=== PATIENT | female | born 1970 | race Caucasian/White ===

== ENCOUNTER 2016-12-06 08:37 | Emergency (ER) | payer SELFPAY ==
--- NOTE | 2016-12-06 09:53 | DIAGNOSTIC IMAGING REPORT ---
PROCEDURE: CT HEAD WITHOUT CONTRAST INDICATION: TRAUMA/INJURY TECHNIQUE: Axial CT images were acquired through the head. Coronal and sagittal reformations were created. COMPARISON: None. FINDINGS: No intracranial hemorrhage or extraaxial fluid collections. Ventricles are normal in size, shape and position. There is no mass, mass effect or midline shift. The gillis-white matter differentiation is normal. There is no edema. The calvarium is intact. Mild hyperostosis frontalis interna. The paranasal sinuses and mastoid air cells are normally aerated. The extracranial soft tissues and orbits are normal. IMPRESSION: 1. No CT evidence of acute intracranial process. 2. Findings discussed with Dr. Nava at 09:[address] scans at this facility use dose modulation, iterative reconstruction, and/or weight-based dosing when appropriate to reduce radiation dose to as low as reasonably achievable.
--- NOTE | 2016-12-06 10:06 | ED NURSING NOTES ---
Clinical Report - Nurses [facility] [address] [place] [address] 12/06/2016 8:37 [id number] Triage time 08:40 Dec 06 2016. Chief Complaint: SEIZURE and injury to head (seizure at work lasting jayme 1-2 minutes, pt struck head on desk, no loss of bladder or oral trauma, hx of seizures- lamictal and keppra - utd on meds, last seizure 2 years ago, pt a/o x 4). Alert. No acute distress. SEPSIS SCREEN: Sepsis Screen: negative. Negative (no infection suspected/documented). ELSY COMA SCORE: Elsy Coma Scale: 15- eyes open spontaneously (4); best verbal response- oriented x 4 (5); best motor response- obeys commands (6). --08:46 Alexis Ordonez R.N. 08:40 12/06/16. BP: 143/84 taken on the right arm, while lying. HR: 94. RR: 15. O2 saturation: 97%. Temp: 98 F. Pain level now: 12/14. --08:46 Alexis Ordonez R.N. Weight: 72.5 kg stated. Height/Length: 67 inches Per Patient. BMI: 25.1. --08:44 Alexis Ordonez R.N. Medications CeleXA Oral. Keppra Oral. LaMICtal Oral. --08:45 Alexis Ordonez R.N. Allergies No Known Drug Allergy. --08:45 Alexis Ordonez R.N. Medication/allergy information source: the patient. --08:46 Alexis Ordonez R.N. History Arrived by EMS. Historian: patient (and ems). ( co pain to back of head, "not a headache, just tender to touch"). Treatment EMR TRAINER: See EMS report. Finger stick glucose performed (132). PAST MEDICAL HX: Seizures. Immunizations: up-to-date. The patient has had a hysterectomy. SOCIAL HX: Former smoker, end date 2006. Occasional alcohol use. No drug use. No infectious disease exposure. ABUSE ASSESSMENT: No report of abuse. SELF HARM ASSESSMENT: A self harm assessment was performed. The patient answered "no" to the question "Do you have thoughts of harming or killing yourself?". NUTRITIONAL RISK ASSESSMENT: The nutritional risk assessment revealed no deficiencies. FUNCTIONAL ASSESSMENT: Functional assessment: no impairments noted. LEARNING NEEDS ASSESSMENT: The learning needs assessment revealed no barriers. SKIN INTEGRITY ASSESSMENT: Skin integrity risk assessment completed. No skin integrity risk identified. --08:46 Alexis Ordonez R.N. PROBLEMS: Tremor. Seizure. --08:45 Alexis Ordonez R.N. ADDITIONAL SURGERIES: Hysterectomy. Tonsillectomy. --08:45 Alexis Ordonez R.N. Interventions ID band on patient. To treatment room. --08:46 Alexis Ordonez R.N. PHYSICAL ASSESSMENT To room via stretcher. Patient gowned. GENERAL / NEURO / PSYCH: Alert. Oriented X 4. Appears in no acute distress. Patient appears well-nourished. HEENT: Pupils equal, round and reactive to light. Mucous membranes are pink. RESPIRATORY: Respirations not labored. CVS: Capillary refill less than 2 seconds. SKIN: Skin intact. Skin is warm and dry. Normal skin turgor. --08:47 Alexis Ordonez R.N. NURSING PROGRESS NOTES Pulse oximeter and NIBP monitor placed on patient; monitor alarms on. Patient gowned. Reassurance given. Seizure precautions maintained: side rails up x2 and padded, suction, O2 and family at bedside, patient in view of nurse's station and call dan in reach. Patient identifiers checked. Call light placed in reach. Side rails up x 2. Safety measures: (seizure pads in place). Bed placed in lowest position. Brakes of bed on. Patient ready for evaluation- chart flagged. Patient waiting for evaluation. --08:47 Alxeis Ordonez R.N. 09:03 12/06/2016 Site #1 started prior to arrival by EMS via IV in the right hand with an 18g angiocath (placed by ems charter boat captain). --09:03 Alexis Ordonez R.N. Patient waiting for evaluation. --09:04 Alexis Ordonez R.N. Patient transported to CT by stretcher with tech. --09:30 Alexis Ordonez R.N. ( call placed to Kathleen Espinoza to clarify dosage of lamictal, pt takes 300mg twice daily, notified). --09:40 Alexis Ordonez R.N. 09:41 12/06/2016 Keppra (LevETIRAcetam) PO 500 mg given. Allergies verified and confirmed 5 rights. --09:41 Alexis Ordonez R.N. ( rx lamictal order faxed to pharmacy). --09:42 Alexis Ordonez R.N. Patient waiting for CT results. --09:43 Alexis Ordonez R.N. 09:49 12/06/2016 LamoTRIgine PO Tablets 300 mg given. Allergies verified and confirmed 5 rights. --09:49 Alexis Ordonez R.N. 09:00 12/06/16. BP: 121/76. HR: 95. RR: 16. O2 saturation: 95% on room air. --10:30 Delvin Shannon R.N. DISPOSITION / DISCHARGE Departure time: 1023. Condition at departure: unchanged and stable. No learning barriers present. Discharge instructions provided and reviewed with the patient. Reviewed medication(s). Reviewed referrals. Patient verbalized understanding. Written instructions provided in Irish. The patient was discharged by the physician. She was discharged home and accompanied by family. She left the Emergency Department ambulatory and via private vehicle. Family member driving. --10:30 Delvin Shannon R.N. 10:00 12/06/16. BP: 124/94. HR: 92. RR: 16. O2 saturation: 95% on room air. Temp: 98 F (oral). Pain level now: 10. --10:30 Delvin Shannon R.N. Locked/Released at 12/06/2016 11:24 by Alexis Ordonez R.N.
--- NOTE | 2016-12-06 10:06 | ED CLINICAL REPORT ---
Clinical Report - Physicians/Mid Levels [facility] [address] [place] [address] 12/06/2016 8:37 Patient: JOHANA SIMMS Time Seen: 09. Arrived- By ambulance. Historian- patient. HISTORY OF PRESENT ILLNESS Chief Complaint: SINGLE SEIZURE. 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 This occurred just prior to arrival and today. Is no longer seizing. She has recovered. Not post-ictal in the emergency department. Seizure was witnessed. Had a single isolated seizure. Seizure activity lasted minutes (1 - 2). Location of injuries- (occipital hematoma). She lost consciousness and was incontinent. Generalized motor activity observed. Not obtunded post-ictally. No confusion post-ictally, speech difficulty post-ictally, weakness post-ictally or numbness post-ictally. reports no other pain or injury to the neck, back, chest, abdomen, pelvis, or other extremities. states that she did not take her seizure meds last night. reports being on 600 mg of lamictal daily and 500 keppra BID. Similar symptoms previously: Recent medical care: Not recently seen/assessed. REVIEW OF SYSTEMS No chest pain, difficulty breathing or abdominal pain. All systems otherwise negative, except as recorded above. PAST HISTORY See nurses notes. Medications: CeleXA Oral. Keppra Oral. LaMICtal Oral. Allergies: No Known Drug Allergy. SOCIAL HISTORY Never smoker. No alcohol use or drug use. No recent travel. Is a local resident. ADDITIONAL NOTES The nursing notes have been reviewed. PHYSICAL EXAM Vital Signs: 12/06/2016 08:40 BP: 143/84. HR: 94. RR: 15. O2 saturation: 97%. Temp: 98 F. Pain level now: 6/10. Oxygen saturation normal. Appearance: Alert. No acute distress. Not post-ictal. Not actively seizing. Eyes: Pupils equal, round and reactive to light. No nystagmus. Extraocular movements normal. ENT: Normal ENT inspection. TM's normal. Moist mucous membranes. Pharynx normal. (no obvious trauma to the tongue). Neck: Normal inspection. Neck supple. No meningeal signs. CVS: Normal heart rate and rhythm. Heart sounds normal. Pulses normal. Respiratory: No respiratory distress. Breath sounds normal. Abdomen: Soft and nontender. No organomegaly. Back: Normal inspection. Skin: Skin warm and dry. Normal skin color. No rash. Normal skin turgor. Extremities: Extremities exhibit normal ROM. No lower extremity edema. Neuro: Alert. Oriented X 3. Mood/affect normal. Speech normal. Cranial nerves normal (as tested). No cerebellar findings. No motor deficit. No sensory deficit. Reflexes normal. LABS, X-RAYS, AND EKG CT Head: (PROCEDURE: CT HEAD WITHOUT CONTRAST INDICATION: TRAUMA/INJURY TECHNIQUE: Axial CT images were acquired through the head. Coronal and sagittal reformations were created. COMPARISON: None. FINDINGS: No intracranial hemorrhage or extraaxial fluid collections. Ventricles are normal in size, shape and position. There is no mass, mass effect or midline shift. The gillis-white matter differentiation is normal. There is no edema. The calvarium is intact. Mild hyperostosis frontalis interna. The paranasal sinuses and mastoid air cells are normally aerated. The extracranial soft tissues and orbits are normal. IMPRESSION: 1. No CT evidence of acute intracranial process.). The study was independently viewed by me and interpreted by the radiologist. The study was discussed with the radiologist (via phone and pacs). PROGRESS AND PROCEDURES Course of Care: the patient is a pleasant 46-year-old female with past medical history significant for seizures on m last night presented for a vaginal seizure. Patient had a generalized seizure based on examination and history. Patient does not need further workup other than Accu-Chek and imaging of the head because of the reported fall. No other abnormalities noted on patient's workup and evaluation. Patient is appropriate and in good spirits. Patient is smiling and in no acute distress. No fever. Patient is agreeable to the treatment plan. The patient's workup is unremarkable. CT scan of the head does not show any signs of acute intracranial bleeding. Accu-Chek from EMS notes that the patient's blood glucose was n negative workup here in the emergency department patient is a stable outpatient candidate. First dose of her seizure medications were provided here in the emergency department. Patient stated that she was on 600 mg of Lamictal once a day however after rechecking these doses found the patient is on 300 mg of Lamictal twice a day. patient encouraged to continue taking her seizure medications as prescribed and follow up with her neurologist. I discussed with the patient workup here in the emergency department including diagnosis, home care, follow-up, and return precautions. All questions have been answered. The patient and daughter expressed understanding of these instructions and was agreeable to them. Disposition: Discharged. Condition: good. CLINICAL IMPRESSION 12/06/2016 08:40 BP: 143/84. HR: 94. RR: 15. O2 saturation: 97%. Temp: 98 F. Pain level now: 12/14. Generalized seizure. History of idiopathic etiology epilepsy (break through). No status epilepticus. Hypertensive. Oxygen saturation normal. Minor closed head injury. Unknown whether a loss of consciousness occurred. INSTRUCTIONS (Continue to take your medications as directed.). Warnings: GENERAL WARNINGS: Return or contact your physician immediately if your condition worsens or changes unexpectedly, if not improving as expected, or if other problems arise. Specifically return if pain, vomiting, bleeding, breathing difficulty or fever. Your Current Medications: CONTINUE TAKING THE FOLLOWING MEDICATIONS: CeleXA Oral. Keppra Oral. LaMICtal Oral. OTC Medications: Acetaminophen (available over the counter): take according to label instructions. Motrin (available over the counter): take according to label instructions. Follow-up: Return to the emergency department as needed. Follow up with your doctor in three days. Reason for referral: recheck today's concerns. Summary of care provided to patient via paper. Screening today revealed the patient's blood pressure to be in the normal range. The patient should follow up with a primary care provider for blood pressure management. Understanding of the discharge instructions verbalized by patient. (Electronically signed by Valente Nava Dr. 12/07/2016 12:31)
--- NOTE | 2016-12-06 10:06 | ED ORDER SUMMARY ---
..... Patient: JOHANA SIMMS OrderSheet [facility] VisitID: [id number] [place] [address] 46y, F Registration Date/Time: 12/06/2016 ORDER SHEET Weight: 72.5 kg (stated) Allergies: No Known Drug Allergy GENERAL ORDERS: CT Head wo Cont Urgent (09:12/06/2016 Donavon Maciel) (Ack 9:21 Deni) (9:25 Jackie R.N.) Ice (09:12/06/2016 Donavon Maciel) (9:23 Teressa) MEDICATION ORDERS: - (lamictal 600 mg PO once now) (09:12/06/2016 Donavon Maciel) (Cancelled: Duplicate Order9:40 Donavon Maciel) Keppra PO 500 mg (Do not crush or chew, NOW) (09:12/06/2016 Donavon Maciel) (9:41 KPacaridad-Winnie R.N.) - (lamictal 300 mg PO once now) (09:40 12/06/2016 Donavon Maciel) (Ack 9:43 KPacaridad-Winnie R.N.) (9:49 KPaMark R.N.) IV FLUIDS: ORDER SHEET NOTES: [Electronically signed by Alexis Ordonez R.N. (11:24 12/06/2016)] [Electronically signed by Valente Nava Dr. (12:31 12/07/2016)] [Electronically locked/signed by Alexis Ordonez R.N. (11:12/06/2016)]
--- NOTE | 2016-12-06 10:06 | ED NURSING NOTES ---
Clinical Report - Nurses [facility] [address] [place] [address] 12/06/2016 8:37 [id number] Triage time 08:40 Dec 06 2016. Chief Complaint: SEIZURE and injury to head (seizure at work lasting jayme 1-2 minutes, pt struck head on desk, no loss of bladder or oral trauma, hx of seizures- lamictal and keppra - utd on meds, last seizure 2 years ago, pt a/o x 4). Alert. No acute distress. SEPSIS SCREEN: Sepsis Screen: negative. Negative (no infection suspected/documented). ELSY COMA SCORE: Elsy Coma Scale: 15- eyes open spontaneously (4); best verbal response- oriented x 4 (5); best motor response- obeys commands (6). --08:46 Alexis Ordonez R.N. 08:40 12/06/16. BP: 143/84 taken on the right arm, while lying. HR: 94. RR: 15. O2 saturation: 97%. Temp: 98 F. Pain level now: 12/14. --08:46 Alexis Ordonez R.N. Weight: 72.5 kg stated. Height/Length: 67 inches Per Patient. BMI: 25.1. --08:44 Alexis Ordonez R.N. Medications CeleXA Oral. Keppra Oral. LaMICtal Oral. --08:45 Alexis Ordonez R.N. Allergies No Known Drug Allergy. --08:45 Alexis Ordonez R.N. Medication/allergy information source: the patient. --08:46 Alexis Ordonez R.N. History Arrived by EMS. Historian: patient (and ems). ( co pain to back of head, "not a headache, just tender to touch"). Treatment QUALITY ASSURANCE DIRECTOR: See EMS report. Finger stick glucose performed (132). PAST MEDICAL HX: Seizures. Immunizations: up-to-date. The patient has had a hysterectomy. SOCIAL HX: Former smoker, end date 2006. Occasional alcohol use. No drug use. No infectious disease exposure. ABUSE ASSESSMENT: No report of abuse. SELF HARM ASSESSMENT: A self harm assessment was performed. The patient answered "no" to the question "Do you have thoughts of harming or killing yourself?". NUTRITIONAL RISK ASSESSMENT: The nutritional risk assessment revealed no deficiencies. FUNCTIONAL ASSESSMENT: Functional assessment: no impairments noted. LEARNING NEEDS ASSESSMENT: The learning needs assessment revealed no barriers. SKIN INTEGRITY ASSESSMENT: Skin integrity risk assessment completed. No skin integrity risk identified. --08:46 Alexis Ordonez R.N. PROBLEMS: Tremor. Seizure. --08:45 Alexis Ordonez R.N. ADDITIONAL SURGERIES: Hysterectomy. Tonsillectomy. --08:45 Alexis Ordonez R.N. Interventions ID band on patient. To treatment room. --08:46 Alexis Ordonez R.N. PHYSICAL ASSESSMENT To room via stretcher. Patient gowned. GENERAL / NEURO / PSYCH: Alert. Oriented X 4. Appears in no acute distress. Patient appears well-nourished. HEENT: Pupils equal, round and reactive to light. Mucous membranes are pink. RESPIRATORY: Respirations not labored. CVS: Capillary refill less than 2 seconds. SKIN: Skin intact. Skin is warm and dry. Normal skin turgor. --08:47 Alexis Ordonez R.N. NURSING PROGRESS NOTES Pulse oximeter and NIBP monitor placed on patient; monitor alarms on. Patient gowned. Reassurance given. Seizure precautions maintained: side rails up x2 and padded, suction, O2 and family at bedside, patient in view of nurse's station and call dan in reach. Patient identifiers checked. Call light placed in reach. Side rails up x 2. Safety measures: (seizure pads in place). Bed placed in lowest position. Brakes of bed on. Patient ready for evaluation- chart flagged. Patient waiting for evaluation. --08:47 Alexis Ordonez R.N. 09:03 12/06/2016 Site #1 started prior to arrival by EMS via IV in the right hand with an 18g angiocath (placed by ems ferry boat captain). --09:03 Alexis Ordonez R.N. Patient waiting for evaluation. --09:04 Alexis Ordonez R.N. Patient transported to CT by stretcher with tech. --09:30 Alexis Ordonez R.N. ( call placed to Kathleen Espinoza to clarify dosage of lamictal, pt takes 300mg twice daily, notified). --09:40 Alexis Ordonez R.N. 09:41 12/06/2016 Keppra (LevETIRAcetam) PO 500 mg given. Allergies verified and confirmed 5 rights. --09:41 Alexis Ordonez R.N. ( rx lamictal order faxed to pharmacy). --09:42 Alexis Ordonez R.N. Patient waiting for CT results. --09:43 Alexis Ordonez R.N. 09:49 12/06/2016 LamoTRIgine PO Tablets 300 mg given. Allergies verified and confirmed 5 rights. --09:49 Alexis Ordonez R.N. 09:00 12/06/16. BP: 121/76. HR: 95. RR: 16. O2 saturation: 95% on room air. --10:30 Delvin Shannon R.N. DISPOSITION / DISCHARGE Departure time: 1023. Condition at departure: unchanged and stable. No learning barriers present. Discharge instructions provided and reviewed with the patient. Reviewed medication(s). Reviewed referrals. Patient verbalized understanding. Written instructions provided in Serbian. The patient was discharged by the physician. She was discharged home and accompanied by family. She left the Emergency Department ambulatory and via private vehicle. Family member driving. --10:30 Delvin Shannon R.N. 10:00 12/06/16. BP: 124/94. HR: 92. RR: 16. O2 saturation: 95% on room air. Temp: 98 F (oral). Pain level now: 10. --10:30 Delvin Shannon R.N. Locked/Released at 12/06/2016 11:24 by Alexis Orodnez R.N.
--- NOTE | 2016-12-06 10:06 | ED ORDER SUMMARY ---
..... Patient: JOHANA SIMMS OrderSheet [facility] VisitID: [id number] [place] [address] 46y, F Registration Date/Time: 12/06/2016 ORDER SHEET Weight: 72.5 kg (stated) Allergies: No Known Drug Allergy GENERAL ORDERS: CT Head wo Cont Urgent (09:12/06/2016 Donavon Maciel) (Ack 9:21 Deni) (9:25 Jackie R.N.) Ice (09:12/06/2016 Donavon Maciel) (9:23 Teressa) MEDICATION ORDERS: - (lamictal 600 mg PO once now) (09:12/06/2016 Donavno Maciel) (Cancelled: Duplicate Order9:40 Donavon Maciel) Keppra PO 500 mg (Do not crush or chew, NOW) (09:12/06/2016 Donavon Maciel) (9:41 KPacaridad-Winnie R.N.) - (lamictal 300 mg PO once now) (09:40 12/06/2016 Donavon Maciel) (Ack 9:43 KPacaridad-Winnie R.N.) (9:49 KPaMark R.N.) IV FLUIDS: ORDER SHEET NOTES: [Electronically signed by Alexis Ordonez R.N. (11:24 12/06/2016)] [Electronically signed by Valente Nava Dr. (12:31 12/07/2016)] [Electronically locked/signed by Alexis Ordonez R.N. (11:12/06/2016)]
--- NOTE | 2016-12-07 12:31 | ED MAR SUMMARY ---
..... Medication Administration [facility] [address] [place] [address] Patient: JOHANA SIMMS Visit ID: [id number] 46y, F Weight: 72.5 kg Height/Length: 67 in BMI: 25.1 ALLERGIES: No Known Drug Allergy Given 09:41 12/06/2016 Alexis Ordonez, RKatelynnNKatelynn Medication Administered: KEPPRA [PO] (LEVETIRACETAM), Dose: 500 mg PO. Medication Ordered: Keppra PO 500 mg (Do not crush or chew, NOW). Given 09:49 12/06/2016 Alexis Ordonez, RKatelynnN. Medication Administered: LAMOTRIGINE [PO], Dose: 300 mg Tablets PO. Medication Ordered: - (lamictal 300 mg PO once now).
--- NOTE | 2016-12-07 12:31 | ED MED RECONCILIATION SUMMARY ---
Patient: JOHANA SIMMS Medication Reconciliation Report [facility] VisitID: [id number] [address] [place] [address] 46y, F Registration Date/Time: 12/06/2016 Weight: 72.5 kg Height/Length: 67 in. BMI: 25.1 ALLERGIES: No Known Drug Allergy The patient's Home Medications are listed below: CONTINUE TAKING THE FOLLOWING MEDICATIONS: CeleXA Oral Keppra Oral LaMICtal Oral The source(s) of the original Home Medication information: patient The following Medications were given to the patient in the Emergency Department: Keppra [PO] PO 500 mg, administered: 12/06/2016 9:41:00 AM LamoTRIgine [PO] PO 300 mg, administered: 12/06/2016 9:49:00 AM The following Medications were prescribed to the patient: Acetaminophen (available over the counter): take according to label instructions. -- Valente Nava Dr. Motrin (available over the counter): take according to label instructions. -- Valente Nava Dr.
--- NOTE | 2016-12-07 12:31 | ED DISCHARGE INSTRUCTIONS ---
Patient: JOHANA SIMMS General Instructions [facility] VisitID: [id number] [place] [address] 46y, F Registration Date/Time: 12/06/2016 12/06/2016 08:40 BP: 143/84. HR: 94. RR: 15. O2 saturation: 97%. Temp: 98 F. Pain level now: 6/10. Generalized seizure. History of idiopathic etiology epilepsy (break through). No status epilepticus. Hypertensive. Oxygen saturation normal. Minor closed head injury. Unknown whether a loss of consciousness occurred. INSTRUCTIONS (Continue to take your medications as directed.). Warnings: GENERAL WARNINGS: Return or contact your physician immediately if your condition worsens or changes unexpectedly, if not improving as expected, or if other problems arise. Specifically return if pain, vomiting, bleeding, breathing difficulty or fever. Your Current Medications: CONTINUE TAKING THE FOLLOWING MEDICATIONS: CeleXA Oral. Keppra Oral. LaMICtal Oral. OTC Medications: Acetaminophen (available over the counter): take according to label instructions. Motrin (available over the counter): take according to label instructions. Follow-up: Return to the emergency department as needed. Follow up with your doctor in three days. Reason for referral: recheck today's concerns. Summary of care provided to patient via paper. Screening today revealed the patient's blood pressure to be in the normal range. The patient should follow up with a primary care provider for blood pressure management. Understanding of the discharge instructions verbalized by patient. ADDITIONAL INFORMATION Recurrent Seizure [Adult] You have had another seizure today. A common cause of recurrent seizure is missing doses of the seizure medicine. However, sometimes seizures are difficult to control even when you take the medicine correctly. If this is the case for you, it may be necessary to increase your dosage or add or change to another medicine. Home Care: For This Seizure: Since seizures are not predictable, you must avoid doing anything that might cause danger to you or others if you have another one. Therefore, until the seizures are under good control, take these precautions: Do not drive a car, bicycle or motorcycle Do not operate dangerous equipment such as power tools Use a shower instead of a bath Do not swim or climb (ladders, trees, roofs) Tell your close friends and relatives about your seizure and teach them what to do for you if it happens again. If you were prescribed a medicine to prevent seizures, take it exactly as directed. It does not work when taken on an "as needed" basis. Missing doses will increase the risk of having another seizure. If you miss a dose, take the missed dose as soon as you remember. If it is almost time for your next dose, skip the missed dose. Restart the medicine at your next scheduled time. Do not take extra medicine to make up the missed dose. Wear a "Medic-Alert" bracelet to advise emergency personnel of your condition. For Future Seizures: If You Are Alone: If you feel a seizure coming on, the best thing to do is to lie down on a bed or on the floor. Lie on your side, not on your back. This will prevent falling, promote drainage of oral secretions out of the mouth and prevent choking. Be sure that you are clear of any objects that might injure you during the seizure. Call for help if there is time. If Someone Is With You: If someone is with you before the seizure, they should help you get in a safe position and call for help. They should not try to force anything in your mouth once the seizure has begun. Doing this may cause injury. Follow Up with your doctor, or as directed by our staff. NOTE: For the safety of yourself and others on the road, certain states require that the treating doctor inform the Public Health Department of any adult who is treated for a seizure and is at risk of further seizures. In this case, the Department of Motor Vehicles (DMV) will be notified and a restriction will be placed on your drivers license until a doctor gives you medical clearance to drive again. Contact your treating doctor to find out if your state requires the reporting of patients with a seizures condition. Get Prompt Medical Attention if any of the following occur: Seizures occurring more often or becoming longer than usual Seizure lasting over 5 minutes No wake-up between seizures Remaining confused for more than 30 minutes after a seizure Injury during a seizure Fever over 100.4F (38.0C) Unusual irritability, drowsiness or confusion Stiff or painful neck Worsening headache Concussion (No Wake-Up) A concussion happens when you hit your head with enough force to shake up the brain. This may cause you to lose consciousness be "knocked out" - but not always. Depending on how hard you hit your head, it will take from a few hours up to a few days to get better. Sometimes symptoms may last a few months or longer. This is called post-concussion syndrome. At first, you may have a headache, nausea, vomiting, or dizziness. You may also have problems concentrating or remembering things. This is normal. Symptoms should get better as the hours and days go by. Symptoms that get worse could be a sign of a more serious injury. This might be a bruise or bleeding in the brain. Thats why its important to watch for the warning signs listed below. Home care Follow these tips to help care for yourself at home: During the next day (24 hours) someone must stay with you to check for the signs below. If your face or scalp swells, apply an ice pack for 20 minutes every 1 to 2 hours. Do this until the swelling starts to go down. You can make an ice pack by putting ice cubes in a plastic bag and wrapping the bag in a towel. for 20 minutes every 1-2 hours until the swelling starts to go down. You may use acetaminophen to control pain, unless another pain medicine was prescribed. If you have chronic liver or kidney disease, talk with your doctor before using these medicines. Also talk with your doctor if you ever had a stomach ulcer or GI bleeding. For the next 24 hours: Dont drink alcohol or take sedatives or medicines that make you sleepy. Dont drive or operate machinery. Avoid doing anything strenuous. Dont lift or strain. Dont return to sports or any activity that could cause you to hit your head until all symptoms are gone and you have been cleared by your doctor. A second head injury before fully recovering from the first one can lead to serious brain injury. Follow-up care Follow up with your doctor in 1 week, or as directed. Note: A radiologist will review any X-rays or CT scans that were taken. You will be told of any new findings that may affect your care. When to seek medical care Get prompt medical attention if any of these occur: Repeated vomiting Headache or dizziness that is severe or gets worse Unusual drowsiness, or unable to wake up as usual Confusion or change in behavior or speech, or memory loss Blurred vision Convulsion (seizure) Swelling on the scalp or face that gets worse Redness, warmth, or pus from the swollen area Fluid draining from or bleeding from the nose or ears You have been given the following additional information: Seizure, Recurrent [Adult] Concussion, No Wake-Up (Electronically signed by Valente Nava Dr. 12/07/2016 12:31)
--- NOTE | 2016-12-07 12:31 | ED MED RECONCILIATION SUMMARY ---
Patient: JOHANA SIMMS Medication Reconciliation Report [facility] VisitID: [id number] [address] [place] [address] 46y, F Registration Date/Time: 12/06/2016 Weight: 72.5 kg Height/Length: 67 in. BMI: 25.1 ALLERGIES: No Known Drug Allergy The patient's Home Medications are listed below: CONTINUE TAKING THE FOLLOWING MEDICATIONS: CeleXA Oral Keppra Oral LaMICtal Oral The source(s) of the original Home Medication information: patient The following Medications were given to the patient in the Emergency Department: Keppra [PO] PO 500 mg, administered: 12/06/2016 9:41:00 AM LamoTRIgine [PO] PO 300 mg, administered: 12/06/2016 9:49:00 AM The following Medications were prescribed to the patient: Acetaminophen (available over the counter): take according to label instructions. -- Valente Nava Dr. Motrin (available over the counter): take according to label instructions. -- Valente Nava Dr.
--- NOTE | 2016-12-07 12:31 | ED MAR SUMMARY ---
..... Medication Administration Record [facility] [address] [place] [address] Patient: JOHANA SIMMS Visit ID: [id number] 46y, F Weight: 72.5 kg Height/Length: 67 in BMI: 25.1 ALLERGIES: No Known Drug Allergy Given 09:41 12/06/2016 Alexis Ordonez, RKatelynnNKatelynn Medication Administered: KEPPRA [PO] (LEVETIRACETAM), Dose: 500 mg PO. Medication Ordered: Keppra PO 500 mg (Do not crush or chew, NOW). Given 09:49 12/06/2016 Alexis Ordonez, RKatelynnN. Medication Administered: LAMOTRIGINE [PO], Dose: 300 mg Tablets PO. Medication Ordered: - (lamictal 300 mg PO once now).
== END 2016-12-06 10:23 | disposition home or self-care (01) ==
LOC: ED SRH 08:37
DX: R56.9 Unspecified convulsions (principal); S09.90XA Unspecified injury of head, initial encounter; I10 Essential (primary) hypertension; X58.XXXA Exposure to other specified factors, initial encounter; Y93.9 Activity, unspecified; Y99.9 Unspecified external cause status; Y92.9 Unspecified place or not applicable; Z79.899 Other long term (current) drug therapy